=== PATIENT | female | born 1990 | race Asian ===

== ENCOUNTER 2016-08-21 10:43 | Emergency (ER) | payer OTHER ==
[~2016-08-21] VITALS: Ht 162.6 cm; Wt 54.4 kg
--- NOTE | 2016-08-21 11:15 | NUR ---
PT CAME IN FOR HEADACHE AND DIFFUSED ABD PAIN X 1 DAY. DENIES N/V. REPORTS OF HAVING [place]ILL[place] LAST NIGHT. VSS. SEEN BY MD FOR EVAL. SAFETY AND COMFORT MEASURES PROVIDED. WILL MONITOR.
[2016-08-21] MEDS ORDERED: IV NS 0.9% 1,000 ML BAG IV ONE (11:30)
[2016-08-21] MEDS ORDERED: ONDANSETRON HCL/PF 4 MG/2 ML VIAL IVP ONE (11:30)
[2016-08-21] MEDS ORDERED: KETOROLAC TROMETHAMINE INJ 30 MG/ML VIAL IV ONE (11:30)
[2016-08-21] MEDS ORDERED: KETOROLAC TROMETHAMINE INJ 30 MG/ML VIAL ONE (11:35)
[2016-08-21] MEDS ORDERED: ONDANSETRON HCL/PF 4 MG/2 ML VIAL ONE (11:36)
[2016-08-21] MEDS ORDERED: IV SET PRIMARY PUMP SET 1 EA INFUS.SET MC ONE (11:36)
[2016-08-21] MEDS ORDERED: IV NS 0.9% 1,000 ML ONE (11:36)
[2016-08-21 11:47] LABS: BASOPHILS # (AUTO) 0.1 /CMM (0.0-0.2); BASOPHILS % (AUTO) 1.7 % (0.0-2.0); HEMATOCRIT 41 % (33-45); HEMOGLOBIN 13.4 g/dL (11.5-14.8); LYMPHOCYTES # (AUTO) 0.4 /CMM (0.8-4.8); LYMPHOCYTES % (AUTO) 5.3 % (20.0-44.0); MEAN CORPUSCULAR HEMOGLOBIN 29 PG (26.0-33.0); MEAN CORPUSCULAR HGB CONC 33 g/dl (31.0-36.0); MEAN CORPUSCULAR VOLUME 88 fL (82-100); MONOCYTES # (AUTO) 0.3 /CMM (0.1-1.30); MONOCYTES % (AUTO) 3.8 % (2.0-12.0); NEUTROPHILS # (AUTO) 7.5 /CMM (1.8-8.9); NEUTROPHILS % (AUTO) 89.2 % (43.0-81.0); PLATELET COUNT (AUTO) 263 /CMM (150-450); RDW COEFFICIENT OF VARIATION 11.7 (11.5-15.0); RED BLOOD CELL COUNT(AUTO) 4.66 MIL/uL (4.0-5.2); WHITE BLOOD COUNT (AUTO) 8.3 K/uL (4.3-11.0)
--- NOTE | 2016-08-21 11:50 | NUR ---
IV ACCESS STARTED. BLOOD DRAWN FOR LABS. PT MEDICATED ORDERED.
[2016-08-21 11:54] LABS: CALCIUM, SERUM 9.1 mg/dL (8.5-10.1); POTASSIUM 3.4 mmol/L (3.5-5.1)
[2016-08-21 12:00] LABS: ALBUMIN 3.7 g/dL (3.4-5.0); BILIRUBIN,DIRECT 0.1 mg/dL (0.0-0.2); BILIRUBIN,TOTAL 0.4 mg/dL (0.2-1.0); TOTAL PROTEIN, SERUM 7.6 g/dL (6.4-8.2)
--- NOTE | 2016-08-21 12:28 | NUR ---
PT TAKEN TO CT.
[2016-08-21 12:52] LABS: APPEARANCE,URINE Turbid (CLEAR); BILIRUBIN,URINE Negative (NEGATIVE); BLOOD, URINE Small Ery/uL (NEGATIVE); COLOR,URINE Light yellow (YELLOW); KETONES,URINE Negative (NEGATIVE); LEUKOCYTE ESTERASE ,URINE Moderate (NEGATIVE); NITRITE, URINE Negative (NEGATIVE); PROTEIN,URINE Negative (NEGATIVE); UGLUCOSE Negative (NEGATIVE); UROBILINOGEN,URINE 0.2 EU/dL (0.2)
[2016-08-21 12:57] LABS: ADD URINE CULTURE NO; BACTERIA,URINE Few /HPF (None Seen)
[2016-08-21 12:58] LABS: SQUAMOUS EPITHELIAL CELL,UR Moderate /HPF (None Seen)
[2016-08-21] MEDS ORDERED: SULFAMETH/TRIMETH 800/160 MG 1 UDTAB TABLET PO ONE ×2 (13:30→13:32)
[2016-08-21] MEDS ORDERED: ONDANSETRON 4 MG TAB.RAPDIS SL ONE (13:30)
[2016-08-21] MEDS ORDERED: ONDANSETRON 4 MG TAB.RAPDIS ONE (13:32)
--- NOTE | 2016-08-21 13:35 | NUR ---
DR ENAMORADO AT FOR AN UPDATE AND RE-EVAL.
[2016-08-21 13:42] VITALS: BP 115/72
--- NOTE | 2016-08-21 13:42 | NUR ---
IV removed. Catheter intact and site benign. Pressure and 4x4 applied to site. No bleeding noted.Patient discharged to home in stable condition. Written and verbal after care instructions given. Patient verbalizes understanding of instruction.
== END 2016-08-21 13:43 | disposition home or self-care (01) ==
LOC: ER 10:46
DX: N39.0 Urinary tract infection, site not specified (principal); R51 Headache; R11.2 Nausea with vomiting, unspecified; F17.200 Nicotine dependence, unspecified, uncomplicated
CPT/HCPCS: 36415; 70450-TC; 80048-TC; 80076-TC; 81000-TC; 83690-TC; 84702-TC; 85025-TC; 87086-TC; 87186-TC; A4606; J1885; J2405; J7030; Q0162; Z7610